=== PATIENT | female | born 1990 | race Caucasian/White ===

== ENCOUNTER → 2018-03-28 | Outpatient (CLI) | payer BC ==
--- NOTE | 2018-03-28 15:03 | MM ---
Reason for exam: clinical finding. Baseline mammogram. History: Family history of breast cancer in mother at age 54. Taking hormonal contraceptives for 2 months. Indicated problem(s): lump or thickening in both breasts. Physical Findings: Nurse Summary: bilateral prominent nodularity all soft, movable (nurse ts). MG 3D Diag Mammo W/Cad ZAINA Bilateral CC and MLO view(s) were taken. The breast tissue is extremely dense which could obscure a lesion on mammography. There is no discrete abnormality including bilateral outer breasts where palpable abnormality reported by physician. These results were verbally communicated with the patient and result sheet given to the patient on 03/28/18. ASSESSMENT: Negative, BI-RAD 1 RECOMMENDATION: Routine screening mammogram of both breasts at age 36. Manage patient on a clinical basis.
== END | disposition home or self-care (01) ==
LOC: RADMAMWWP 13:51
PROVIDERS: ATTEND Internal Medicine
DX: N63.0 Unspecified lump in unspecified breast (principal)
CPT/HCPCS: 77062; 77066

== ENCOUNTER → 2021-02-19 | Outpatient (CLI) | payer BC ==
--- NOTE | 2021-02-19 13:42 | XR ---
EXAMINATION TYPE: XR chest 2V DATE OF EXAM: 02/19/2021 COMPARISON: NONE HISTORY: H/O ASTHMA. TESTED POSTIVE FOR COVID IN BETWEEN VACCINATIONS. PT STATES MILD CHEST PAINS AND DYSPNA TECHNIQUE: Frontal and lateral views of the chest are obtained. FINDINGS: There is no focal air space opacity. No evidence for pneumothorax. No pleural effusion. The cardiac silhouette size is within normal limits. The osseous structures are grossly intact. IMPRESSION: 1. No acute cardiopulmonary process.
== END | disposition home or self-care (01) ==
LOC: RADXRMAIN 12:42
PROVIDERS: ATTEND Internal Medicine
DX: J45.909 Unspecified asthma, uncomplicated (principal); U07.1 COVID-19
CPT/HCPCS: 71046